=== PATIENT | male | born 1975 | race Caucasian/White ===

== ENCOUNTER 2020-05-14 11:32 | Emergency (ER) | payer OTHER ==
[~2020-05-14] VITALS: Ht 165.1 cm; Wt 100.0 kg
[2020-05-14 11:36] VITALS: BP 138/84
[2020-05-14] MEDS ORDERED: ACETAMINOPHEN 325MG TABLET PO STA (11:44)
[2020-05-14] MEDS ORDERED: ACETAMINOPHEN 500MG TABLET PO NR (12:00)
[2020-05-14 13:04] LABS: CHLORIDE 107 mEq/L (98-107)
[2020-05-14 13:26] LABS: BASOPHILS % 0.6 % (0.0-2.0); EOSINOPHILS % 0.5 % (0.0-5.0); HEMOGLOBIN. 15.8 g/dL (14.0-18.0); LYMPHOCYTES % 13.6 % (20.0-50.0); MEAN CORPUSCULAR HEMOGLOBIN 29.2 pg (28.0-32.0); MEAN CORPUSCULAR VOLUME 85.2 fL (80.0-94.0); MEAN PLATELET VOLUME 8.4 fl (7.4-10.4); MONOCYTES % 13.8 % (2.0-8.0); NEUTROPHILS % 71.5 % (40.0-76.0); PLATELET 248 x1000/uL (130-400); RED BLOOD CELL COUNT 5.41 mill/uL (4.7-6.1); RED CELL DISTRIBUTION WIDTH 13.4 % (11.6-14.6)
== END 2020-05-14 13:57 | disposition home or self-care (01) ==
LOC: ER 11:32
DX: U07.1 COVID-19 (principal)
CPT/HCPCS: 36415; 71045; 80053; 85025; 99284; C9803; U0003

== ENCOUNTER 2020-06-03 14:14 | Emergency (ER) | payer OTHER ==
[~2020-06-03] VITALS: Ht 175.3 cm; Wt 76.0 kg
[2020-06-03 14:30] VITALS: BP 119/95
== END 2020-06-03 15:02 | disposition home or self-care (01) ==
LOC: ER 14:14
DX: U07.1 COVID-19 (principal)
CPT/HCPCS: 87635; 99283